=== PATIENT | female | born 2005 | race Caucasian/White ===

== ENCOUNTER 2023-09-19 17:42 | Emergency (ER) | payer SELFPAY ==
[2023-09-19] VITALS (7 sets, daily range): BP systolic 107–149; BP diastolic 58–83; BMI 24.7
[2023-09-19 18:00] LABS: % Basophils 0.5 % (0-2); % Eosinophils 0.2 % (0-6); % Immature Granulocytes 0.3 % (0-0.5); % Lymphocytes 26.8 % (20.5-51.1); % Monocytes 8.5 % (1.7-9.3); % Neutrophils 63.7 % (42.2-75.2); Absolute Basophils 0.1 10^3/uL (0-0.2); Absolute Lymphocytes 2.5 10^3/uL (1.2-3.4); Absolute Monocytes 0.8 10^3/uL (0.1-0.6); Hematocrit 38.7 % (37.0-47.0); Hemoglobin 13.5 g/dL (12.0-16.0); Mean Corp Hgb Conc. 34.9 g/dL (33.0-37.0); Mean Corpuscular Hgb 30.3 pg (27.0-31.0); Mean Corpuscular Volume 86.8 fL (81.0-99.0); Mean Platelet Volume 9.6 fL (7.4-10.4); Nucleated Red Blood Cells % 0 %; Platelet Count 329 10^3/uL (130-400); Red Blood Cell Count 4.46 10^6/uL (4.20-5.40); Red Cell Dist. Width 12.2 % (11.5-14.5); White Blood Cell Count 9.5 10^3/uL (4.8-10.8)
[2023-09-19 18:29] LABS: ALT (SGPT) 18 U/L (0-35); AST (SGOT) 25 U/L (14-36); Alkaline Phosphatase 61 U/L (38-126); Blood Urea Nitrogen 7 mg/dl (7-17); Carbon Dioxide 20 mmol/L (22-30); Chloride 106 mmol/L (98-107); Estimated Creatinine Clearance 102 ml/min; Glucose 89 mg/dl (70-99); Potassium 3.9 mmol/L (3.5-5.1); Sodium 141 mmol/L (135-145); Total Bilirubin 0.8 mg/dl (0.2-1.3); Total Protein 7.9 g/dl (6.3-8.2); eGFR > 60.00
[2023-09-19 18:33] LABS: Troponin I < 0.012 ng/ml
[2023-09-19 18:55] LABS: Magnesium 1.9 mg/dl (1.6-2.3)
[2023-09-19 18:58] LABS: HCG, Serum Qualitative Screen Negative
[2023-09-19] MEDS: ATIVAN 1 MG PO (19:05)
[2023-09-19 19:25] LABS: TSH 1.49 uIU/ml (0.47-4.68)
[2023-09-19] MEDS: ATIVAN 1 MG IV (19:53)
[2023-09-19 20:29] LABS: D-Dimer < 0.27 ug/mlFEU (0.00-0.50)
--- NOTE | 2023-09-19 20:38 | ED.GENMED ---
History of Present Illness
General
Chief Complaint: Anxiety
Source: patient
Exam Limitations: none
Time Seen by Provider: 09/19/23 17:49
Nursing documentation reviewed up to this point in time: agreed with
History of Present Illness
History of Present Illness:
17 y/o F with h/o borderline personality disorder on lamictal
just increased dose 1 mo ago to 200
here with 2 days pain with inspiration in her chest, mild sob
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
pt says she doesn't recall feeling stressed
she uses marijuana but not just before this
no cocaine
no fhx of premature CAD
pt has nexplanon
no recent fever,chills,
she appearntly has had sob and hcest pains for a year or so off and on and went to pcp whom she thought blew her off and also went to UC before and was told to see cards but she has not yet
no syncope, no recent long travel
Past History
Past History
ED Past Medical History: Psychiatric
Social History
Tobacco: Non-smoker
Review of Systems
Review of Systems
Allergies reviewed?: Yes
All Other Systems: Not applicable
Phy Exam
Physical Exam
Physical Exam:
GENERAL: Alert , in no apparent distress
EYE: pupils equal and reactive
NECK: Supple
ENT: o/p clr, mmm.
CARDIAC: was regular and then went up to 140s sinus, no obvious murmur
LUNGS: Clear breath sounds bilaterally, no acute respiratory distress, no wheezes/rales/rhonchi
ABDOMEN: Soft, without focal tenderness, no r/g, no cvat, normal bowel sounds
NEUROLOGICAL: Alert and oriented, no focal neuro deficits
SKIN: Warm and dry, skin intact.
some old cuts on her left forearm from cutting
MUSCULOSKELETAL: No edema, well perfused. neg bernardino's sign
PSYCH: Normal and appropriate interaction.
Course
Orders/Labs/Results
Orders:
Orders
09/19/23
Electrocardiogram (*1) Stat
Reason for Study: Chest Pain
Comment: DONE
Electrocardiogram (*1) Stat
Reason for Study: Chest Pain
Comment: DONE
09/19/23 17:46
Electrocardiogram (*1) Urgent
Reason for Study: Chest Pain
EKG- Treatment ONCE
09/19/23 17:54
Complete Blood Count/With Diff Urgent
Comprehensive Metabolic Panel Urgent
HCG, Serum Qualitative Screen Urgent
Comment: ADDON
Magnesium Urgent
Comment: ADDON
TSH Urgent
Comment: ADDON
Troponin I Urgent
09/19/23 18:35
Add On- LAB Urgent
Tests Added?: tsh reflex t4, hcg serum qual, mag
09/19/23 18:36
Cardiac Monitoring- Treatment ONCE
09/19/23 19:04
Lorazepam [Ativan] 1 mg .ROUTE .STK-MED ONE
09/19/23 19:05
Lorazepam [Ativan] 1 mg PO NOW STA
Lorazepam [Ativan] 1 mg PO NOW STA
09/19/23 19:28
D-Dimer Urgent
09/19/23 19:52
Lorazepam [Ativan] 2 mg .ROUTE .STK-MED ONE
09/19/23 19:53
Lorazepam [Ativan] 1 mg IV NOW STA
09/19/23 20:29
CT Chest Pe Study Urgent
Comment:
Reason For Exam: tachyc, cp
Abnormal Lab Results
09/19/23
17:54
Absolute Monos (auto) 0.8 H 10^3/uL
(0.1-0.6)
Carbon Dioxide 20 L mmol/L
(22-30)
09/19/23 17:54
09/19/23 17:54
Vital Signs
Initial and Last Documented VS:
Initial Vital Signs
BP
127/80
09/19/23 17:48
Last Documented Vital Signs
Temp Pulse Resp BP Pulse Ox
98.4 F 116 31 121/83 99
09/19/23 17:51 09/19/23 22:30 09/19/23 22:30 09/19/23 22:04 09/19/23 22:30
MDM/Problems Addressed
Differential Diagnosis Includes:
anxiety, pe, palpitations, electrolyte disturbance
MDM/Problems Addressed:
17 y/o F with h/o borderline pers disorder
on lamictal, has been on for some time, but inc dose a fwe weeks ago
here with 3 days insp chest pain and today with a shaking/tachycardic episode; pt says she felt uncontrollable shakes and anxious
pt says her dad committed suicide last year and that has been stressful but she hasn't been particularly overwhelmed by that recently
pt was initially mildly tachy
her ekg was sinus with t wave inv III, avL
no st elevation
unlikey to be ACS
was pursuing r/o with d dimer but then pt became extremely tachy to 140s and very shaky
got a dose of iv ativan which helped
i do suspect anxiety but ultimately pt became higher risk than screening with d dimer thus Chest CT
ct was neg
pt reassessed and calm, well appearing
suspect this is mostly anxiety/stress
d/c home with short course of ativan for severe symptoms
recommend she speak with her psychiatrist
also consider cards eval.
*Critical Care Note
Total Time (30-74mins, 75-104mins- exclusive of procedures): Not Applicable
ED Attending Note
-
Portions of this chart may have been created with voice recognition software.� Occasional wrong word or��sound alike� substitutions may have occurred due to the inherent limitations of voice recognition software.
Discharge Plan
Departure
Patient Disposition: Home (Routine Discharge)
Date of Disposition: 09/19/23
Time of Disposition: 22:26
Patient with high blood pressure during this ER visit?: No
Condition: Fair
Covid-19: Not Applicable
Discharge Problem:
Sinus tachycardia, Anxiety, Chest pain
Instructions: Anxiety, Adult (DC), Chest Pain PCP Follow Up
Prescriptions:
New
lorazepam [Ativan] 0.5 mg tablet
0.5 mg PO BID PRN (Reason: anxiety) Qty: 4 0RF
Referrals:
Brian Lam MD [Active] - Follow up in 1 week
(cardiology
)
UNKNOWN - PT DOES,NOT KNOW [Family Provider] -
Activity Restrictions/Additional Instructions:
WE ARE NOT SURE THE CAUSE OF YOUR CHEST PAIN
YOU HAD BLOOD WORK, EKG AND RULED OUT A BLOOD CLOT
YOU SHOULD FOLLOW UP WITH A MICROBIOLOGY LABORATORY MANAGER TO WEAR A MONITOR TO BE SURE YOU AREN'T HAVING ANY ABNORMAL RHYTHMS
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
SEE YOUR PSYCHIATRIST
Interventions
Interventions:
*Risk Screen - Suicide Last Done: 09/19/23 17:55
*General Assessment Last Done: 09/19/23 17:56
*Neglect/Abuse Screening Last Done: 09/19/23 17:55
ED- Fall Risk Assessment Last Done: 09/19/23 17:56
*ED COVID-19 Vaccine History Last Done: 09/19/23 17:56
*Nursing Disposition Last Done: 09/19/23 22:36
ED-Psychological Assessment Last Done: 09/19/23 17:56
Discharge Date and Time
Discharge Date/Time: 09/19/23 22:40
Print Language: GREENLANDIC
== END 2023-09-19 22:40 | disposition home or self-care (01) ==
LOC: EMR 17:42
PROVIDERS: Physician Assistant; EMERGENCY PHYSICIAN Student in an Organized Health Care Education/Training Program
DX: R00.0 Tachycardia, unspecified (principal); F41.9 Anxiety disorder, unspecified; R07.89 Other chest pain
CPT/HCPCS: 99284; 96374; 71275; 80053; 83735; 84443; 84484; 84703; 85025; 85379; 93005; 99285; Q9967